=== PATIENT | male | born 1980 | race Two or more races ===

== ENCOUNTER 2017-09-23 21:55 | Emergency (ER) | payer MEDICAID ==
[~2017-09-23] VITALS: Ht 170.2 cm; Wt 106.6 kg
[2017-09-23 22:25] VITALS: BP 136/78
[2017-09-24] MEDS ORDERED: IBUPROFEN 600 MG TAB PO ONE (00:30)
[2017-09-24] MEDS ORDERED: BACLOFEN 10 MG TAB PO ONE (00:30)
== END 2017-09-24 00:51 | disposition home or self-care (01) ==
LOC: ER 21:55
DX: S29.012A Strain of muscle and tendon of back wall of thorax, initial encounter (principal); S16.1XXA Strain of muscle, fascia and tendon at neck level, initial encounter; S46.912A Strain of unspecified muscle, fascia and tendon at shoulder and upper arm level, left arm, initial encounter; S80.02XA Contusion of left knee, initial encounter; J45.909 Unspecified asthma, uncomplicated; V49.09XA Driver injured in collision with other motor vehicles in nontraffic accident, initial encounter; Y93.89 Activity, other specified; Y92.410 Unspecified street and highway as the place of occurrence of the external cause; Y99.8 Other external cause status
CPT/HCPCS: 72125; 72128; 72131; 73020; 73560